=== PATIENT | male | born 1950 | race Caucasian/White ===

== ENCOUNTER 2016-08-25 15:27 | Emergency (ER) | payer SELFPAY ==
[~2016-08-25 15:27] MED LIST: ATEN1TAB73
[2016-08-25 15:29] VITALS: BP 117/71; PULSE 64; RESP 17; TEMP 98.4; O2SAT 99
== END 2016-08-25 17:35 | disposition left against medical advice (07) ==
LOC: NED 15:27
DX: Z53.21 Procedure and treatment not carried out due to patient leaving prior to being seen by health care provider (principal)
CPT/HCPCS: 99281